=== PATIENT | male | born 1955 | race Caucasian/White ===

== ENCOUNTER 2016-05-27 09:19 | Emergency (ER) | payer OTHER ==
--- NOTE | 2016-05-27 11:04 | RAD ---
Indication: Cough. 2 views of the chest including dual energy PA views demonstrate no mediastinal shift. Heart is of normal size and configuration. Lung adrian demonstrate no pleural fluid, pneumonia or pneumothorax. IMPRESSION: No active cardiopulmonary disease is noted.
--- NOTE | 2016-05-27 11:32 | UC ---
Respiratory Complaint HPI - HPI Summary HPI Summary: Patient is an otherwise healthy 60yo M who presents with 3 weeks of cough, congestion which he states has become worse since last evening and sitting heavily in his chest. He has been taking Mucinex x 2 days and states immediately after, he feels better. As the day continues, he gradually gets worse. Nothing makes the symptoms better or worse and he denies smoking. He was recently placed on a blood pressure medication, but otherwise his health history has not changed. Sleeping makes the cough worse or lying in a recumbent position. He denies chest pain or SOB. Although, he takes Symbicort for his mild asthma. He may also have an albuterol inhaler at home, but he's not sure. Denies needing one as he does not experience any acute SOB. - History of Current Complaint Chief Complaint: UCRespiratory Stated Complaint: URI Time Seen by Provider: 05/27/16 10:16 Hx Obtained From: Patient Onset/Duration: Gradual Onset Timing: Constant Severity Initially: Moderate Severity Currently: Moderate Pain Intensity: 3 Pain Scale Used: 0-10 Numeric Character: Cough: Productive Aggravating Factors: Deep Breaths, Recumbent Position Alleviating Factors: Upright Position Associated Signs And Symptoms: Positive: Negative, URI, Nasal Congestion, Sinus Discomfort - Risk Factors Pulmonary Embolism Risk Factors: Negative Cardiac Risk Factors: Hypertension, Elevated Lipids Pseudomonas Risk Factors: Negative Tuberculosis Risk Factors: Negative - Allergies/Home Medications Allergies/Adverse Reactions: Allergies Allergy/AdvReac Type Severity Reaction Status Date / Time No Known Allergies Allergy Verified 08/02/13 09:12 Home Medications: Home Medications Atorvastatin* [Lipitor 10 MG*] 1 PO DAILY 05/27/16 [History] amLODIPine TAB* [Norvasc 5 mg TAB*] 1 PO DAILY 05/27/16 [History] PMH/Surg Hx/FS Hx/Imm Hx Previously Healthy: Yes Endocrine History Of: Denies: Diabetes, Thyroid Disease Cardiovascular History Of: Reports: Hypertension Denies: Cardiac Disorders Respiratory History Of: Reports: Asthma Denies: COPD GI/ History Of: Denies: Ulcer - Surgical History Surgical History: Yes Surgery Procedure, Year, and Place: appe - Family History Known Family History: Positive: Cardiac Disease - Social History Occupation: Employed Full-time Lives: With Family Alcohol Use: Occasionally Substance Use Type: None Smoking Status (MU): Never Smoked Tobacco Have You Smoked in the Last Year: No Review of Systems Constitutional: Negative Eyes: Negative ENT: Nasal Discharge Respiratory: Cough Cardiovascular: Negative Genitourinary: Negative Neurovascular: Negative Musculoskeletal: Negative Psychological: Negative All Other Systems Reviewed And Are Negative: Yes Physical Exam Triage Information Reviewed: Yes Appearance: Well-Appearing, Well-Nourished Vital Signs: Initial Vital Signs Temp 98.6 F 05/27/16 10:06 Pulse 108 05/27/16 10:06 Resp 18 05/27/16 10:06 BP 111/85 05/27/16 10:06 Pulse Ox 100 05/27/16 10:06 Vital Signs Reviewed: Yes Eye Exam: Normal Eyes: Positive: Conjunctiva Clear ENT Exam: Normal ENT: Positive: Pharynx normal, Nasal drainage Dental Exam: Normal Neck exam: Normal Neck: Positive: Supple, No Lymphadenopathy Respiratory Exam: Normal Respiratory: Positive: Wheezing Cardiovascular Exam: Normal Cardiovascular: Positive: RRR Musculoskeletal Exam: Normal Musculoskeletal: Positive: Strength Intact Neurological Exam: Normal Neurological: Positive: Alert Psychological Exam: Normal Psychological: Positive: Normal Response To Family Skin Exam: Normal Diagnostic Evaluation - Laboratory O2 Sat by Pulse Oximetry: 100 Respiratory Course/Dx - Course Course Of Treatment: Patient was treated for suspected bacterial component of bronchitis as his lungs were wheezing, he has a history of asthma and cough x 3 weeks with worsening symptoms. Given Levaquin as Z-johnson rarely works well for him he states. Tylenol with codeine for cough. Mucinex for congestion. Patient agrees to follow up and is OK with discharge. - Differential Dx/Diagnosis Differential Diagnosis/HQI/PQRI: Asthma, Bronchitis, Sinusitis Provider Diagnoses: Bacterial Bronchitis Discharge - Discharge Plan Condition: Stable Disposition: HOME Prescriptions: Acetaminophen W/ Codeine [Acetaminophen/Codeine 300-60 mg] 1 tab PO Q4H PRN #24 tab MDD 6 PRN Reason: Cough Levofloxacin TAB* [Levaquin 750 MG TAB*] 750 mg PO DAILY #5 tab MDD 1 guaiFENesin ER TAB [Mucinex*] 600 mg PO BID #12 tab.er MDD 2 Patient Education Materials: Acute Bronchitis (ED) Referrals: Rosi Slaughter [Primary Care Provider] - Additional Instructions: You have been given an antibiotic for a suspicion of bacterial exacerbation of a bronchitis. If your symptoms fail to improve, come back to or go to your ED. Follow up with your PCP regarding this issue. Take mucinex for a minimum of 3 days in the morning and at night. Take the tylenol with codeine only if you are experiencing cough and up to every [address] not drive with this medication.
[2016-05-27 11:35] VITALS: BP 128/82
== END 2016-05-27 11:37 | disposition home or self-care (01) ==
LOC: UCEAST 09:19
DX: J40 Bronchitis, not specified as acute or chronic (principal); I10 Essential (primary) hypertension
CPT/HCPCS: 71020; 99212; G0463